=== PATIENT | female | born 1955 | race Two or more races ===

== ENCOUNTER 2020-01-31 09:09 | Outpatient (CLI) | payer OTHER | END 2020-01-31 09:18 | disposition home or self-care (01) | LOC: SONOGRAMA 09:09 → MAMO-SONO 09:15 → SONOGRAMA 09:18 | PROVIDERS: ATTEND Internal Medicine Endocrinology, Diabetes & Metabolism | DX: E04.2 Nontoxic multinodular goiter (principal) ==

== ENCOUNTER 2020-05-07 10:15 | Outpatient (CLI) | payer OTHER | END 2020-05-07 10:18 | disposition home or self-care (01) | LOC: SONOGRAMA 10:15 | PROVIDERS: ATTEND Pathology Anatomic Pathology & Clinical Pathology | DX: E04.2 Nontoxic multinodular goiter (principal) ==

== ENCOUNTER 2022-06-20 07:13 | Outpatient (CLI) | payer OTHER | END 2022-06-20 07:16 | disposition home or self-care (01) | LOC: NUCLEAR 07:13 | PROVIDERS: ATTEND Internal Medicine Cardiovascular Disease | DX: I25.10 Atherosclerotic heart disease of native coronary artery without angina pectoris (principal) | CPT/HCPCS: 78452; 93017; A9500 ==

== ENCOUNTER 2022-07-21 09:13 | Outpatient (CLI) | payer OTHER | END 2022-07-21 09:16 | disposition home or self-care (01) | LOC: SONOGRAMA 09:13 | PROVIDERS: ATTEND Pathology Anatomic Pathology | DX: D34 Benign neoplasm of thyroid gland (principal); E04.9 Nontoxic goiter, unspecified; E04.8 Other specified nontoxic goiter ==

== ENCOUNTER → 2023-09-21 | Outpatient (CLI) | payer OTHER | END | disposition home or self-care (01) | LOC: SONOGRAMA 10:15 | PROVIDERS: ATTEND Pathology Anatomic Pathology & Clinical Pathology | DX: D34 Benign neoplasm of thyroid gland (principal); E07.89 Other specified disorders of thyroid; E04.8 Other specified nontoxic goiter ==